=== PATIENT | female | born 1980 | race Caucasian/White ===

== ENCOUNTER 2019-07-04 14:47 | Inpatient (IN) | payer MEDICAID, OTHER ==
[~2019-07-04] VITALS: Ht 154.9 cm; Wt 61.0 kg
--- NOTE | 2019-07-04 15:10 | NUR ---
Note julienne in ED - 07/04/19 at 1715 by ESTEFANI REPORT FROM AUTUMN PARKER. PT RESTING IN [facility] NOTED. SPO2/ECG/BP MONITORING IN PLACE. LARGE NECROTIC WOUND NOTED TO L BREAST. NO DRAINAGE OR ERYTHEMA NOTED.
--- NOTE | 2019-07-04 15:14 | NUR ---
pt presents to ED with c/o lesion to left breast x 8 days, has been incarcerated x 5 days. pt brought by law enforcement, padmini at bedside. pt has hx mrsa and IV drug use, pt states this was not an injection site. pt is a&ox4, resps even and unlabored. bp and spo2 monitors in place. call light in reach. pt changed into gown and examined by DA Guo.
--- NOTE | 2019-07-04 15:15 | NUR ---
REPORT FROM AUTUMN PARKER. EKG IN PROGRESS. PT RESTING ON [facility] DAILY NOTED. OFFICER AT BEDSIDE. PT DENIES NEEDS. AWAITING ORDERS.
--- NOTE | 2019-07-04 15:19 | NUR ---
MD Guo notified pt states she had an abnormal EKG one month ago, but did not follow up. pt unable to state specifics of EKG results. Verbal order received to obtain EKG. tech to BS for EKG at this time.
[2019-07-04] MEDS ORDERED: SODIUM CHLORIDE FLUSH 10ML SYR IVF ONE (15:30)
[2019-07-04] MEDS ORDERED: AMPICILLIN/SULBACTAM 3 GM in SODIUM CHLORIDE 0.9% 100 ML IV ONE (15:30)
[2019-07-04] MEDS ORDERED: PLEASE ENTER ALLERGIES MC SCH (15:30)
[2019-07-04] MEDS ORDERED: VANCOMYCIN PER PHARMACY MC ONE (15:30)
--- NOTE | 2019-07-04 15:40 | NUR ---
PO2/ECG/BP MONITORING IN PLACE. LARGE NECROTIC WOUND NOTED TO L BREAST. NO DRAINAGE OR ERYTHEMA NOTED.
[2019-07-04 16:02] LABS: BASOPHILS # (AUTO) 0.02 x10^3/uL (0-0.1); BASOPHILS % (AUTO) 0 % (0-1); EOSINOPHILS # (AUTO) 0.12 x10^3/uL (0-0.4); EOSINOPHILS % (AUTO) 1 % (1-7); LYMPHOCYTES # (AUTO) 2.78 x10^3/uL (1-3.4); LYMPHOCYTES % (AUTO) 24 % (22-44); MD NO; MEAN CORPUSCULAR HEMOGLOBIN 30.3 pg (27.0-34.8); MEAN CORPUSCULAR HGB CONC 33.4 g/dL (32.4-35.8); MEAN CORPUSCULAR VOLUME 90.8 fL (80-100); MEAN PLATELET VOLUME 9.6 fL (7.4-10.4); MONOCYTES # (AUTO) 0.73 x10^3/uL (0.2-0.8); MONOCYTES % (AUTO) 6 % (2-9); NEUTROPHILS # (AUTO) 8.06 x10^3/uL (1.8-6.8); NEUTROPHILS % (AUTO) 69 % (42-75); PLATELET COUNT 226 x10^3/uL (130-400); RED BLOOD COUNT 5.17 x10^6/uL (3.82-5.3); RED CELL DISTRIBUTION WIDTH 13.5 % (9.6-15.2)
[2019-07-04 16:10] LABS: ALBUMIN 3.9 g/dL (3.4-5.0); ANION GAP 9 mmol/L (5-15); CALCIUM 8.7 mg/dL (8.5-10.1); CHLORIDE 104 mmol/L (98-107); CREATININE 1.21 mg/dL (0.55-1.02)
--- NOTE | 2019-07-04 16:30 | NUR ---
AUTUMN COULTER AT BEDSIDE TO PLACE IV. ABX INITIATED. NO BC PRIOR TO ABX ADMIN PER ERP
--- NOTE | 2019-07-04 17:05 | NUR ---
CALL FROM [facility] STATING THAT ANAEROBIC CULTURE TUBE BROKE AND IS UNABLE TO BE RUN. HOSPITALIST AT BEDSIDE AND MADE AWARE. ANAEROBIC CULTURE TUBE PROVIDED TO HOSPITALIST FOR REPEAT COLLECTION.
[2019-07-04] MEDS: SODIUM CHLORIDE 0.9% 1,000 ML IV SCH ×2 (17:07→22:00)
--- NOTE | 2019-07-04 17:24 | NUR ---
PT/OFFICER AWARE OF POC, ADMIT/SURGERY AND DEMONSTRATE UNDERSTANDING. LAST MEAL TODAY AT 1130.
[2019-07-04] MEDS ORDERED: VANCOMYCIN PER PHARMACY MC PRN (17:30)
[2019-07-04] MEDS: NICOTINE 21 MG/24 HR PATCH.TD24 TD SCH (17:30)
[2019-07-04] MEDS ORDERED: ONDANSETRON ODT 4 MG PO PRN (17:30)
[2019-07-04] MEDS ORDERED: ONDANSETRON 2MG/ML, 2ML IVPush PRN (17:30)
[2019-07-04] MEDS ORDERED: AMPICILLIN/SULBACTAM 3 GM in SODIUM CHLORIDE 0.9% 100 ML IV SCH (17:30)
--- NOTE | 2019-07-04 17:52 | NUR ---
REPORT TO AUTOMOBILE RENTAL REPRESENTATIVE. PT CO IV ARROUND IV SITE. IV CONTINUES TO FLUSH WO BLOOD RETURN. AUTOMOBILE RENTAL REPRESENTATIVE AWARE AND AGREES TO PLACE ADDITIONAL ACCESS NEEDED.
--- NOTE | 2019-07-04 18:05 | NUR ---
REPORT TO AUTUMN EASTON ON SURG FLOOR
[2019-07-04] MEDS ORDERED: EPINEPHRINE 1 MG/ML, 1ML ONE (18:49)
[2019-07-04] MEDS ORDERED: BUPIVACAINE/PF 0.5% ONE (18:49)
[2019-07-04] MEDS ORDERED: PROPOFOL 10 MG/ML, 20ML ONE (18:55)
[2019-07-04] MEDS ORDERED: FENTANYL PF 250 MCG/5ML ONE (19:41)
[2019-07-04] MEDS ORDERED: VANCOMYCIN 1,000 MG ONE (19:46)
[2019-07-04] MEDS ORDERED: MEPERIDINE/PF 25MG/ML,1ML IVPush PRN (20:30)
[2019-07-04] MEDS ORDERED: HYDROmorphone 2 MG/ML, 1ML IVPush PRN ×2 (20:30→21:30)
[2019-07-04] MEDS ORDERED: OXYcodone 5 MG/5 ML ORAL.SOL UDC PO PRN (20:30)
[2019-07-04] MEDS ORDERED: LORazepam 2 MG/ML, 1ML IVPush PRN (20:30)
[2019-07-04] MEDS ORDERED: FENTANYL PF 100 MCG/2ML IV PRN (20:30)
[2019-07-04] MEDS ORDERED: ONDANSETRON 2MG/ML, 2ML IV PRN (20:30)
[2019-07-04] MEDS ORDERED: ACETAMINOPHEN 325 MG TABLET PO PRN (20:30)
[2019-07-04] MEDS ORDERED: IBUPROFEN 200 MG TABLET PO PRN (21:30)
[2019-07-04] MEDS: OXYcodone 5 MG/5 ML ORAL.SOL UDC PO PRN (22:38)
[2019-07-04] MEDS: AMPICILLIN/SULBACTAM 3 GM in SODIUM CHLORIDE 0.9% 100 ML IV SCH (22:57)
[2019-07-04 23:00] VITALS: BP 122/86
[2019-07-04] MEDS ORDERED: VANCOMYCIN PMX 1GM/200ML 200 ML IV ONE (23:45)
[2019-07-04 23:46] VITALS: BP 112/68
[2019-07-05 02:00] VITALS: BP 116/66
[2019-07-05] MEDS: OXYcodone 5 MG/5 ML ORAL.SOL UDC PO PRN ×3 (05:15→21:44)
[2019-07-05] MEDS: AMPICILLIN/SULBACTAM 3 GM in SODIUM CHLORIDE 0.9% 100 ML IV SCH ×4 (05:38→23:25)
[2019-07-05 07:45] LABS: ALBUMIN 2.8 g/dL (3.4-5.0); ANION GAP 8 mmol/L (5-15); BASOPHILS # (AUTO) 0.03 x10^3/uL (0-0.1); BASOPHILS % (AUTO) 0 % (0-1); CALCIUM 7.6 mg/dL (8.5-10.1); CHLORIDE 111 mmol/L (98-107); EOSINOPHILS # (AUTO) 0.12 x10^3/uL (0-0.4); EOSINOPHILS % (AUTO) 1 % (1-7); HEMOGRAM NOTE RECHECKED; LYMPHOCYTES # (AUTO) 2.74 x10^3/uL (1-3.4); LYMPHOCYTES % (AUTO) 22 % (22-44); MD NO; MEAN CORPUSCULAR HEMOGLOBIN 30.2 pg (27.0-34.8); MEAN CORPUSCULAR VOLUME 91.3 fL (80-100); MEAN PLATELET VOLUME 10.7 fL (7.4-10.4); MONOCYTES # (AUTO) 0.75 x10^3/uL (0.2-0.8); MONOCYTES % (AUTO) 6 % (2-9); NEUTROPHILS # (AUTO) 8.65 x10^3/uL (1.8-6.8); NEUTROPHILS % (AUTO) 70 % (42-75); PLATELET COUNT 188 x10^3/uL (130-400); RED BLOOD COUNT 4.15 x10^6/uL (3.82-5.3); RED CELL DISTRIBUTION WIDTH 13.2 % (9.6-15.2)
[2019-07-05 07:48] LABS: ALANINE AMINOTRANSFERASE 9 U/L (12-78); ALKALINE PHOSPHATASE 97 U/L (45-117); BILIRUBIN,TOTAL 0.4 mg/dL (0.2-1.0); CREATININE 0.97 mg/dL (0.55-1.02); TOTAL PROTEIN 5.9 g/dL (6.4-8.2)
[2019-07-05] MEDS ORDERED: VANCOMYCIN 1,200 MG in SODIUM CHLORIDE 0.9% 250 ML IV SCH (08:00)
[2019-07-05 08:28] VITALS: BP 102/73
[2019-07-05] MEDS ORDERED: POTASSIUM CHLORIDE 20 MEQ TAB.ER.PRT PO ONE (08:30)
[2019-07-05] MEDS: SODIUM CHLORIDE 0.9% 1,000 ML IV SCH ×2 (09:05→17:39)
[2019-07-05 12:31] VITALS: BP 109/82
[2019-07-05] MEDS: NICOTINE 21 MG/24 HR PATCH.TD24 TD SCH ×2 (17:30→19:53)
[2019-07-05 19:58] VITALS: BP 117/80
[2019-07-05 23:33] LABS: CLOSTRIDIUM DIFFICILE ANTIGEN POSITIVE; CLOSTRIDIUM DIFFICILE TOXIN NEGATIVE (Negative)
[2019-07-06 00:36] VITALS: BP 110/64
[2019-07-06] MEDS: ACETAMINOPHEN 325 MG TABLET PO PRN (02:30)
[2019-07-06] MEDS: VANCOMYCIN 1,200 MG in SODIUM CHLORIDE 0.9% 250 ML IV SCH ×2 (03:00→21:37)
[2019-07-06] MEDS: SODIUM CHLORIDE 0.9% 1,000 ML IV SCH ×2 (03:00→17:01)
[2019-07-06] MEDS: OXYcodone 5 MG/5 ML ORAL.SOL UDC PO PRN ×3 (05:10→19:26)
[2019-07-06] MEDS: AMPICILLIN/SULBACTAM 3 GM in SODIUM CHLORIDE 0.9% 100 ML IV SCH ×4 (05:24→23:22)
[2019-07-06 05:57] LABS: BASOPHILS # (AUTO) 0.03 x10^3/uL (0-0.1); BASOPHILS % (AUTO) 0 % (0-1); EOSINOPHILS # (AUTO) 0.19 x10^3/uL (0-0.4); EOSINOPHILS % (AUTO) 2 % (1-7); LYMPHOCYTES # (AUTO) 3.21 x10^3/uL (1-3.4); LYMPHOCYTES % (AUTO) 36 % (22-44); MD NO; MEAN CORPUSCULAR HEMOGLOBIN 30.2 pg (27.0-34.8); MEAN CORPUSCULAR HGB CONC 33.3 g/dL (32.4-35.8); MEAN CORPUSCULAR VOLUME 90.7 fL (80-100); MEAN PLATELET VOLUME 10.3 fL (7.4-10.4); MONOCYTES # (AUTO) 0.43 x10^3/uL (0.2-0.8); MONOCYTES % (AUTO) 5 % (2-9); NEUTROPHILS # (AUTO) 5.11 x10^3/uL (1.8-6.8); NEUTROPHILS % (AUTO) 57 % (42-75); PLATELET COUNT 165 x10^3/uL (130-400); RED BLOOD COUNT 3.98 x10^6/uL (3.82-5.3); RED CELL DISTRIBUTION WIDTH 13.5 % (9.6-15.2)
[2019-07-06 06:03] LABS: ANION GAP 8 mmol/L (5-15); CALCIUM 7.6 mg/dL (8.5-10.1); CHLORIDE 114 mmol/L (98-107); CREATININE 0.66 mg/dL (0.55-1.02)
[2019-07-06 08:29] VITALS: BP 119/79
[2019-07-06 14:23] VITALS: BP 116/74
[2019-07-06] MEDS: VANCOMYCIN 50 MG/ML ORAL SUSP PO SCH ×2 (17:01→22:39)
[2019-07-06] MEDS: NICOTINE 21 MG/24 HR PATCH.TD24 TD SCH (20:00)
[2019-07-06 20:20] VITALS: BP 118/85
[2019-07-07 02:12] VITALS: BP 112/67
[2019-07-07] MEDS: VANCOMYCIN 50 MG/ML ORAL SUSP PO SCH ×4 (04:47→23:13)
[2019-07-07] MEDS: OXYcodone 5 MG/5 ML ORAL.SOL UDC PO PRN ×2 (04:49→21:09)
[2019-07-07] MEDS: SODIUM CHLORIDE 0.9% 1,000 ML IV SCH ×3 (04:50→23:13)
[2019-07-07 05:08] LABS: BASOPHILS # (AUTO) 0.03 x10^3/uL (0-0.1); BASOPHILS % (AUTO) 0 % (0-1); EOSINOPHILS # (AUTO) 0.21 x10^3/uL (0-0.4); EOSINOPHILS % (AUTO) 2 % (1-7); LYMPHOCYTES # (AUTO) 3.05 x10^3/uL (1-3.4); LYMPHOCYTES % (AUTO) 34 % (22-44); MD NO; MEAN CORPUSCULAR HGB CONC 33.1 g/dL (32.4-35.8); MEAN CORPUSCULAR VOLUME 90.8 fL (80-100); MEAN PLATELET VOLUME 10.6 fL (7.4-10.4); MONOCYTES # (AUTO) 0.42 x10^3/uL (0.2-0.8); MONOCYTES % (AUTO) 5 % (2-9); NEUTROPHILS # (AUTO) 5.23 x10^3/uL (1.8-6.8); NEUTROPHILS % (AUTO) 59 % (42-75); PLATELET COUNT 153 x10^3/uL (130-400); RED BLOOD COUNT 3.96 x10^6/uL (3.82-5.3); RED CELL DISTRIBUTION WIDTH 13.3 % (9.6-15.2)
[2019-07-07 05:13] LABS: ANION GAP 7 mmol/L (5-15); CALCIUM 7.7 mg/dL (8.5-10.1); CHLORIDE 112 mmol/L (98-107); CREATININE 0.68 mg/dL (0.55-1.02)
[2019-07-07] MEDS: AMPICILLIN/SULBACTAM 3 GM in SODIUM CHLORIDE 0.9% 100 ML IV SCH ×2 (05:45→11:28)
[2019-07-07 06:48] VITALS: BP 127/82
[2019-07-07 13:58] VITALS: BP 117/76
[2019-07-07] MEDS: VANCOMYCIN 1,200 MG in SODIUM CHLORIDE 0.9% 250 ML IV SCH (14:37)
[2019-07-07] MEDS: LACTOBACILLUS CHEW TABLET PO SCH ×2 (18:23→21:09)
[2019-07-07] MEDS: CEFTRIAXONE PMX 1GM/50ML 50 ML IV SCH (18:23)
[2019-07-07 20:01] VITALS: BP 124/81
[2019-07-07] MEDS: NICOTINE 21 MG/24 HR PATCH.TD24 TD SCH (21:09)
[2019-07-08] MEDS: ACETAMINOPHEN 325 MG TABLET PO PRN (01:50)
[2019-07-08 02:15] VITALS: BP 113/77
[2019-07-08] MEDS: LACTOBACILLUS CHEW TABLET PO SCH ×4 (05:14→20:17)
[2019-07-08] MEDS: VANCOMYCIN 50 MG/ML ORAL SUSP PO SCH ×4 (05:14→23:27)
[2019-07-08] MEDS: D5%-0.45NACL+KCL 20MEQ 1,000 ML IV SCH ×2 (08:32→23:28)
[2019-07-08 09:18] VITALS: BP 103/75
[2019-07-08 13:07] VITALS: BP 118/83
[2019-07-08] MEDS: CEFTRIAXONE PMX 1GM/50ML 50 ML IV SCH (17:59)
[2019-07-08 19:59] VITALS: BP 113/83
[2019-07-08] MEDS: NICOTINE 21 MG/24 HR PATCH.TD24 TD SCH (20:17)
[2019-07-08] MEDS: OXYcodone 5 MG/5 ML ORAL.SOL UDC PO PRN ×2 (23:27→23:54)
[2019-07-09 01:29] VITALS: BP 107/64
[2019-07-09] MEDS: VANCOMYCIN 50 MG/ML ORAL SUSP PO SCH ×2 (05:25→10:20)
[2019-07-09] MEDS: LACTOBACILLUS CHEW TABLET PO SCH ×2 (05:25→10:20)
[2019-07-09 06:33] LABS: CHLORIDE 110 mmol/L (98-107)
[2019-07-09 06:47] LABS: ANION GAP 8 mmol/L (5-15); CALCIUM 8.2 mg/dL (8.5-10.1); CREATININE 0.77 mg/dL (0.55-1.02)
[2019-07-09 08:04] VITALS: BP 114/79
[2019-07-09] MEDS: D5%-0.45NACL+KCL 20MEQ 1,000 ML IV SCH (10:20)
[2019-07-09] MEDS ORDERED: OXYC5CAP2 PO (12:51)
[2019-07-09] MEDS ORDERED: ACID1TAB7 PO (12:51)
[2019-07-09] MEDS ORDERED: CEFD300C37 PO (12:51)
[2019-07-09] MEDS ORDERED: VANC125C11 PO (12:51)
[2019-07-09 14:22] VITALS: BP 106/76
== END 2019-07-09 15:40 | DRG 385 ==
LOC: ED 14:59 → EDIP 16:30 → 4NE 20:55
PROVIDERS: ADMIT Internal Medicine; ATTEND Internal Medicine
PROC: 0JB60ZZ Excision of Chest Subcutaneous Tissue and Fascia, Open Approach (ICD-10-PCS; principal; 2019-07-04 18:15)
DX: N61.1 Abscess of the breast and nipple (principal); N17.0 Acute kidney failure with tubular necrosis; E87.6 Hypokalemia; F11.20 Opioid dependence, uncomplicated; F17.200 Nicotine dependence, unspecified, uncomplicated; G89.29 Other chronic pain; M54.9 Dorsalgia, unspecified; Z86.14 Personal history of Methicillin resistant Staphylococcus aureus infection; L02.213 Cutaneous abscess of chest wall; A04.72 Enterocolitis due to Clostridium difficile, not specified as recurrent; Z87.442 Personal history of urinary calculi
CPT/HCPCS: 36415; 71045; 80048; 80053; 82040; 83735; 84100; 84703; 85025; 87015; 87070; 87075; 87102; 87116; 87205; 87206; 87324; 87493; 93005; 99285; G0378; J0171; J0295; J0696; J2405; J2704; J3010; J3370; J3480; J7030; J7050

== ENCOUNTER → 2019-07-18 | Outpatient (CLI) | payer MEDICAID, OTHER ==
[~2019-07-18] MED LIST: ACID1TAB7 PO; CEFD300C37 PO; OXYC5CAP2 PO; VANC125C11 PO
== END | disposition home or self-care (01) ==
LOC: WOUND 08:26
PROVIDERS: ATTEND Internal Medicine
DX: T81.89XA Other complications of procedures, not elsewhere classified, initial encounter (principal); N61.1 Abscess of the breast and nipple; L03.319 Cellulitis of trunk, unspecified; G89.29 Other chronic pain; F11.20 Opioid dependence, uncomplicated; F17.200 Nicotine dependence, unspecified, uncomplicated; Z86.14 Personal history of Methicillin resistant Staphylococcus aureus infection; Y92.89 Other specified places as the place of occurrence of the external cause; Y83.8 Other surgical procedures as the cause of abnormal reaction of the patient, or of later complication, without mention of misadventure at the time of the procedure
CPT/HCPCS: 97597; 99215

== ENCOUNTER 2019-09-08 13:25 | Emergency (ER) | payer MEDICAID, OTHER ==
[~2019-09-08] VITALS: Ht 154.9 cm; Wt 61.7 kg
[2019-09-08 13:27] VITALS: BP 139/96
--- NOTE | 2019-09-08 13:32 | NUR ---
PT AMBULATED TO ROOM WITH TECH WITH A STEADY GAIT.
--- NOTE | 2019-09-08 13:41 | NUR ---
ERMD AT BEDSIDE EVALUATING PT.
[2019-09-08] MEDS ORDERED: CEPHALEXIN 500 MG CAPSULE PO ONE (14:00)
[2019-09-08] MEDS ORDERED: SULFAMETH./TRIMETHOPRIM DS 800MG/160MG TABLET PO ONE (14:00)
[2019-09-08] MEDS ORDERED: SULFAMETH./TRIMETHOPRIM DS 800MG/160MG TABLET ONE (14:02)
[2019-09-08] MEDS ORDERED: LEVETIRACETAM 500 MG TABLET ONE (14:02)
[2019-09-08] MEDS ORDERED: CEPHALEXIN 500 MG CAPSULE ONE (14:22)
[2019-09-08] MEDS ORDERED: NEOSPORIN OINT. PKT 1 PACKET ONE (14:23)
--- NOTE | 2019-09-08 14:33 | NUR ---
RN WRAPPED PTS LEFT FOOR PER ERMD ORDERS. EXTRA SUPPLIES PROVIDED TO PT. BREAK AUTUMN ARAUJO MEDICATED PT PER EMAR. RN TO DC PT.
== END 2019-09-08 14:47 | disposition home or self-care (01) ==
LOC: ED 13:47
DX: L03.116 Cellulitis of left lower limb (principal)
CPT/HCPCS: 99283

== ENCOUNTER 2020-05-23 18:25 | Emergency (ER) | payer MEDICAID ==
[~2020-05-23] VITALS: Ht 154.9 cm; Wt 65.2 kg
--- NOTE | 2020-05-23 18:59 | NUR ---
REPORT RECIEVED FROM AUTUMN SINGH
[2020-05-23 19:40] LABS: BASOPHILS % (AUTO) 0 % (0-1); EOSINOPHILS % (AUTO) 2 % (1-7); LYMPHOCYTES % (AUTO) 41 % (22-44); MEAN CORPUSCULAR HEMOGLOBIN 29.8 pg (27.0-34.8); MEAN CORPUSCULAR HGB CONC 33.7 g/dL (32.4-35.8); MEAN PLATELET VOLUME 9.7 fL (7.4-10.4); MONOCYTES % (AUTO) 4 % (2-9); NEUTROPHILS % (AUTO) 53 % (42-75); PLATELET COUNT 109 x10^3/uL (130-400); RED BLOOD COUNT 4.72 x10^6/uL (3.82-5.3); RED CELL DISTRIBUTION WIDTH 14.4 % (9.6-15.2)
[2020-05-23 19:44] LABS: MD NO
[2020-05-23 20:19] LABS: ALBUMIN 3.5 g/dL (3.4-5.0); ANION GAP 4 mmol/L (5-15); CALCIUM 8.4 mg/dL (8.5-10.1); CHLORIDE 110 mmol/L (98-107)
[2020-05-23] MEDS ORDERED: DIPHENHYDRAMINE 25 MG CAPSULE ONE (20:56)
[2020-05-23 21:00] VITALS: BP 113/78
[2020-05-23] MEDS ORDERED: DIPHENHYDRAMINE 25 MG CAPSULE PO ONE (21:00)
== END 2020-05-23 21:27 | disposition home or self-care (01) ==
LOC: ED 19:03
DX: B34.9 Viral infection, unspecified (principal); Z20.828 Contact with and (suspected) exposure to other viral communicable diseases; H92.02 Otalgia, left ear
CPT/HCPCS: 71045; 80048; 82040; 85025; 87635; 99284